=== PATIENT | male | born 1955 | race Caucasian/White ===

== ENCOUNTER 2019-10-10 09:29 | Outpatient (CLI) | payer BC ==
[2019-10-10] VITALS (19 sets, daily range): BP systolic 100–144; BP diastolic 56–94; PULSE 70–93; TEMP 98.2
[~2019-10-10] VITALS: Ht 175.3 cm; Wt 64.1 kg
[~2019-10-10 09:29] MED LIST: COZAAR 50MG50 MG/TAB PO; HYDROCODONE/APAP; LISINOPRIL
--- NOTE | 2019-10-10 10:45 | NUR ---
PT TAKEN TO CT AND POSITIONED ON THE BED. 02 AT 2 L/NC. IMAGES TAKEN AND SENT
--- NOTE | 2019-10-10 10:53 | NUR ---
PT WAS GIVEN 0.5 MG VERSED AND 25MCG FENTANYL
--- NOTE | 2019-10-10 11:37 | NUR ---
BEDSIDE REPORT TAKEN FROM FLORIAN GONZALES. 2 HOURS BEDREST, THEN CHEST XRAY. SISTER CARTER MCCORD [phone].
--- NOTE | 2019-10-10 15:30 | NUR ---
Discharge instructions reviewed with pt. Pt voices understanding. Per Radiologist, small pneumo, improving, may be discharged. IV was discontinued by FLORIAN Bowden, catheter tip intact, no phlebitis or infiltration. Pt discharged via w/c to the care of sister in private vehicle with discharge instructions and CD in hand.
== END 2019-10-10 15:30 | disposition home or self-care (01) ==
LOC: COL.RAD 09:29
DX: J95.811 Postprocedural pneumothorax (principal); R91.8 Other nonspecific abnormal finding of lung field
CPT/HCPCS: J2250; J3010